=== PATIENT | male | born 1960 | race Caucasian/White ===

== ENCOUNTER 2016-12-18 10:25 | Emergency (ER) | payer MEDICARE, OTHER ==
[~2016-12-18 10:25] MED LIST: BP MED; DIABETIC MED; FLEXERIL PO; JANUVIA PO; METFORMIN PO; NO MEDICATIONS; PEGASUS; TYLOX 5/500 CAP1 CAP PO; VICTOZA 3-0.6 MG/0.1; ZESTORETIC 10-1 EAC1; [UNRECOGNIZED DRUG - OTHER]
== END 2016-12-18 12:10 | disposition home or self-care (01) ==
LOC: CFTX 10:25 → CED 10:25 → CFTX 11:50
DX: L02.01 Cutaneous abscess of face (principal); E11.9 Type 2 diabetes mellitus without complications; I10 Essential (primary) hypertension; F17.200 Nicotine dependence, unspecified, uncomplicated
CPT/HCPCS: 99283